=== PATIENT | male | born 1990 | race Caucasian/White ===

== ENCOUNTER 2018-10-19 13:59 | Emergency (ER) | payer MEDICAID, SELFPAY ==
[2018-10-19 14:00] VITALS: BP 138/82; PULSE 85; RESP 16; TEMP 36.6; O2SAT 98; BMI 19.9
--- NOTE | 2018-10-19 14:09 | RAD_ITS ---
STUDY: X-RAY CHEST REASON FOR EXAM: Male, 28 years old. Chest pain following accident. TECHNIQUE: PA and lateral views of the chest. COMPARISON: None. FINDINGS: The lungs are clear and expanded. There is no demonstrated pleural abnormality. Normal size heart. Normal mediastinum and sugar. Normal visualized pulmonary arteries. Normal visualized aortic arch and descending thoracic aorta. Normal visualized thoracic spine. Normal visualized ribs, clavicles, and shoulders. There is no demonstrated abnormality of the visualized soft tissue structures of the upper abdomen. RAD/Chest PA and Lateral IMPRESSION: Normal x-ray examination of the chest. Electronically Signed: Cb Watt, at 14:33 EDT , Service support ,
--- NOTE | 2018-10-19 14:14 | ED.DCSUM_ITS ---
History of Present Illness Chief Complaint: Chest Other Detail of Chief Complaint: Anterior right chest pain status post fall Informant: Patient Onset: Days - Fall occurred Wednesday while skateboarding. He had 3 separate falls onto the pavement. Context: Sudden Onset Timing: Continuous Quality: Pain Location: Midclavicular line second third intercostal space right side Current Severity: Mild Maximum Severity: Severe Worsened by: Movement of right upper extremity, torso and breathing Relieved by: Nothing Associated Symptoms: Slight shortness of breath Narrative: Patient is a 28-year-old male who was skateboarding this past weekend. He had multiple falls. He remembers 3 falls specifically where he landed hard on the ground. He reports pain right anterior chest midclavicular line second third intercostal space. He reports pain with movement of the right upper extremity, twisting and breathing. He does report slight shortness of breath. He denies history of pneumothorax. He denies history of rib fractures. He denied head trauma. He denied loss of conscious. He denies neck pain. He denies paresthesia, anesthesia motors. He denies GI symptoms. He denies back pain. Prior similar symptoms: No Recent Illness/Hospitalization: No - Past Medical History (1) No significant past medical history Status: Acute Past Medical History - Allergies and Home Meds Allergies/Adverse Reactions: Allergies No Known Allergies Allergy (Verified 10/19/18 14:00) Primary Care Physician: Sidney Feldman [Primary Care Provider] - Prior records reviewed: No Surgical History: no surgical history Lives: Spouse/ Significant Other Drugs: None Review of Systems General: Denies: Chills, Fever, Malaise, Subjective, Sweats Eyes: Denies: Visual changes - bilaterally, Blurred Vision - bilaterally ENT: Denies: Bilateral ear pain Cardiovascular: Reports: Chest pain. Denies: Palpitations, Heart racing Respiratory: Reports: Dyspnea. Denies: Cough, Sputum, Dyspnea on exertion Gastrointestinal: Denies: Abdominal pain, Nausea, Vomiting, Diarrhea Genitourinary: Denies: Hematuria Musculoskeletal: Denies: Myalgias, Arthralgias, Neck pain, Back pain, Swelling, Extremity Pain Skin: Denies: Rash, Wounds Neurological: Denies: Headache, Weakness, Parasthesia Allergy: Denies: Uticaria Physical Exam Vital Signs/Narrative: Vital Signs Temp Pulse Resp BP Pulse Ox 10/19/18 14:00 97.8 F 85 16 138/82 H 98 Inital Vital Signs reviewed: Yes General: Well nourished, Well developed, No Acute Distress Head: Normocephalic, Atraumatic Eyes: Perrl, EOMI. Negative for: Pale conjunctiva, Scleral icterus, - ENT: Moist mucous membranes, No rhinorrhea Neck: Supple, Nontender, No lymphadenopathy, No JVD, - Cardiovascular: Regular rate, Regular rhythm, No murmurs, Normal S1, Normal S2 Respiratory: No distress, CTA bilaterally, Chest tenderness - Right midclavicular line second third intercostal space with area of fullness noted. There is no crepitus subcutaneous air noted. Breath sounds slightly diminished right compared to left. There is no hyperresonance percussion.. Negative for: Chest nontender Abdomen: Soft, Nontender, Nondistended, Normal bowel sounds, No masses Extremities: Nontender, No edema Skin: Normal color, No rash Neurological: Alert, Oriented x3, Cranial nerves II-XII grossly intact, Normal Strength, Normal Sensation Psychological: Normal affect, Normal Mood Diagnostic/Tx/Re-eval Chest X-Ray - ED: 2 View, Read by ED Physician, Normal, Heart, Lungs, Mediastinum, Bony Structures, No Acute Disease, - - No evidence of pneumothorax or hemothorax. No evidence of fractured ribs. - Medical Decision Making Patient received 500 mg of Naprosyn and one [place] tablet. X-ray was obtained to evaluate for pneumothorax, hemothorax and fractured rib. ED Disposition - Plan for ED Patient: Disposition: Home or Assisted Living Diagnosis: Chest wall contusion Instructions: ED Contusion Chest Wall Prescriptions: Hydrocodone Bitart/Apap 5-325 [[place] 5MG-325MG] 1 tab PO Q6H PRN PRN 2 Days #7 tab PRN Reason: Pain Naproxen [Naprosyn] 500 mg PO BID #14 tab Referrals: Sidney Feldman [Primary Care Provider] - 3-5 Days if not improving
[2018-10-19] MEDS: Naproxen 250 MG Tablet 500 MG PO (14:22)
[2018-10-19] MEDS: HYDROcodone Bitartrate/Apap 5/325 Tablet PO (14:23)
== END 2018-10-19 14:52 | disposition home or self-care (01) ==
LOC: ED 14:51
PROVIDERS: Emergency Provider Emergency Medicine; Family Provider Family Medicine; PCP Family Medicine
DX: S20.211A Contusion of right front wall of thorax, initial encounter (principal); V00.131A Fall from skateboard, initial encounter; Y93.51 Activity, roller skating (inline) and skateboarding; Y92.9 Unspecified place or not applicable; Y99.8 Other external cause status
CPT/HCPCS: 71046; 99283

== ENCOUNTER 2019-07-11 07:59 | Emergency (ER) | payer OTHER, SELFPAY ==
[2019-07-11 08:02] VITALS: BP 154/113; PULSE 89; RESP 16; TEMP 36.3; O2SAT 99
[2019-07-11 08:18] LABS: Mucous, Urine 0 SEEN /hpf (<or=2+)
[2019-07-11 08:28] LABS: Color, Urine Yellow (Yellow); Glucose, Dipstick Normal (Normal); Ketone-Dipstick Negative (Negative); Leukocyte Esterase-Dipstick Negative /ul (Negative); Nitrite-Dipstick Negative (Negative); Occult Blood-Urine Negative /ul (Negative); Protein-Dipstick Negative (Negative); Specific Gravity, Urine 1.015 (1.002-1.030); Urine Bilirubin Dipstick Negative (Negative); Urine Clarity Cloudy (Clear); Urine Urobilinogen Normal (Normal)
[2019-07-11 08:33] LABS: Bacteria 1+ /hpf (None Seen); Red Blood Cells-Urine 0-5 SEEN /hpf (0-5); White Blood Cells 0-5 SEEN /hpf (0-5)
[2019-07-11 08:34] LABS: Amorphous Sediment 2+; Squamous Epithelial Cells - UA 0-5 SEEN /hpf (0-5)
--- NOTE | 2019-07-11 08:46 | ED.DCSUM_ITS ---
- ER Visit Summary Date of Service: 07/11/19 Chief Complaint: [Concern for STD] History of Present Illness: The patient is a 29 M [presents to the emergency department with concern for possible STD. Patient states that his girlfriend cheated on him a few weeks ago. Patient complaining of dysuria. Patient yesterday states that he felt like there was some fluid in his underwear. She got some erythema at the tip of the penis. He denies any other lesions on his penis. Patient has had history of prior STD years ago but he does not know what it they just treated him.] Denies any fevers. Physical Examination: [HEENT-PERRLA, EOMI. Cranial nerves II through XII grossly intact. TMs clear. Mucous membranes moist. No adenopathy. Cardiovascular-regular rate and rhythm without murmur or ectopy Lungs-clear to auscultation, chest wall stable without crepitus or subcu emphysema Abdomen-normoactive bowel sounds, soft, nontender, no rebound or rigidity, no peritoneal signs. exam-patient is a circumcised male. No external lesions noted. No drainage from the penis noted. Extremities-intact ?4, normal range of motion, normal pulses, atraumatic] Test Results: [Patient had a urinalysis that was unremarkable.] Gonorrhea and Chlamydia testing results pending. Emergency Department Course and Treatment: [Macular Rocephin to 50 mg IM as well as Zithromax 1 g p.o.] Treatment Plan: [Patient will be referred to primary care physician quality control representative for no doc for follow-up in 3 to 5 days.] Disposition: [Discharged home in stable condition] Impression: [Urethritis] This note was generated with [employer] dictation software. It may contain incorrect words, spelling, and punctuation that were not noted in review of the chart prior to signing ED Disposition - Plan for ED Patient: Referrals: Care Physician,No Primary [Primary Care Provider] -
--- NOTE | 2019-07-11 08:48 | ED.DEP ---
ED Disposition - Plan for ED Patient: Instructions: URETHRITIS, Male (GC vs. Chlam) Referrals: Care Physician,No Primary [Primary Care Provider] - Cheryl Gold MD [STAFF PHYSICIAN] - 3-5 Days
[2019-07-11] MEDS: Azithromycin 250 MG Tablet 1000 MG PO (09:06)
[2019-07-11] MEDS: Ceftriaxone 500 MG Vial 250 MG IM (09:20)
[2019-07-11 09:54] VITALS: BP 142/91; PULSE 83; RESP 16; O2SAT 98
--- NOTE | 2019-07-11 10:08 | ED.RN ---
DISCHARGE INSTRUCTIONS GIVEN TO AND REVIEWED WITH PATIENT, PATIENT DENIES QUESTIONS OR CONCERNS AND VOICES UNDERSTANDING OF DISCHARGE INSTRUCTIONS.
[2019-07-11 10:11] LABS: Chlamydia Trachomatis by PCR Negative (Negative); Neisserai gonorrhoeae by PCR Negative (Negative); Probe Check PASS; Sample Adequacy Control PASS; Specimen Processing Control PASS
== END 2019-07-11 10:09 | disposition home or self-care (01) ==
LOC: ED 08:30
PROVIDERS: Emergency Provider Emergency Medicine
DX: N34.2 Other urethritis (principal); Z72.0 Tobacco use
CPT/HCPCS: 81001; 87491; 87591; 96372; 99283

== ENCOUNTER → 2020-02-01 09:42 | Outpatient (CLI) | payer BC, SELFPAY ==
[2020-02-01 12:00] LABS: Absolute Lymphocyte Count 1.33 X10^3/uL (0.83-4.51); Absolute Neutrophil Count 2.9 X10^3/uL (2.0-7.7); Basophil# 0.03 X10^3/uL; Basophil% 0.6 % (0-1); Eosinophil# 0.08 X10^3/uL; Eosinophils% 1.7 % (0-5); Hematocrit 45.1 % (40-54); Hemoglobin 15.2 g/dL (13.0-16.5); Lymphocyte # 1.33 X10^3/ul (4.0); Lymphocyte % 27.8 % (19-41); Mean Corp Hgb Conc 33.7 g/dL (32-36); Mean Corpuscular Hgb 31.1 pg (27.0-32.0); Mean Corpuscular Volume 92.4 fL (80-94); Mean Platelet Vol. 10.1 fl (6.2-12.0); Monocyte% 8.4 % (0-10); NRBC Flagged by Analyzer 0 % (0-5); Neutrophil # 2.93 X10^3/uL (2.7-7.7); Neutrophil % 61.3 % (47-70); Platelet Count 293 K/mm3 (150-450); RBC Distribution Width CV 12.3 % (11.6-14.6); RBC Distribution Width SD 42.2 fl (35.1-43.9); Red Blood Count 4.88 M/mm3 (4.6-6.2); White Blood Count 4.8 K/mm3 (4.4-11.0)
[2020-02-01 12:15] LABS: Insulin 2.1 mU/L (2.6-37.6)
[2020-02-01 12:20] LABS: Hemoglobin A1c 4.5 % (3.8-5.6)
[2020-02-01 12:37] LABS: ALB/GLOB Ratio 1.6 RATIO (0.9-2.4); AST(SGOT) 16 U/L (15-37); Alanine Aminotransfer ALT/SGPT 18 U/L (16-61); Albumin, Serum 4.5 g/dL (3.2-5.0); Alkaline Phosphatase 55 U/L (45-117); Anion Gap 7 (5-15); BUN 9 mg/dL (7-18); BUN/Creat Ratio 9.8 RATIO (10-20); CRP < 2.90 mg/L (0.0-3.0); Calcium,Total 8.7 mg/dL (8.5-10.1); Chloride 105 mmol/L (98-107); Cholesterol 139 mg/dL (200); Creatinine, Serum 0.92 mg/dL (0.70-1.30); EST Glomerular Filtration Rate 103 mL/min (>60); Est Glom Filt Rate - Afr Amer 125 mL/min (>60); Globulin 2.8 g/dL (2.2-4.2); Glucose 81 mg/dL (74-106); High Density Lipoprotein 58 mg/dL; Potassium 3.6 mmol/L (3.5-5.1); Protein, Total 7.3 g/dL (6.4-8.2); Sodium Level 139 mmol/L (136-145); Thyroid Stim Hormone (TSH) 1.47 uIU/mL (0.358-3.74); Triglycerides 36 mg/dL; Very Low Density Lipoprotein 7 mg/dL (5-40)
[2020-02-02 20:07] LABS: Endomysial Antibody IgA Negative (Negative)
[2020-02-02 21:24] LABS: Immunoglobulin A 168 mg/dL (90-386); t-Transglutaminase IgA <2 U/mL (0-3)
== END ==
PROVIDERS: PCP Family Medicine; Visit Provider Family Medicine
DX: Z00.00 Encounter for general adult medical examination without abnormal findings (principal); E16.2 Hypoglycemia, unspecified; K52.9 Noninfective gastroenteritis and colitis, unspecified
CPT/HCPCS: 36415; 80053; 80061; 82533; 82784; 83036; 83516; 83525; 84443; 85025; 86140; 86255

== ENCOUNTER → 2020-02-07 10:18 | Outpatient (CLI) | payer BC, SELFPAY ==
[2020-02-07 12:51] LABS: Erythrocyte Sedimentation Rate < 1 mm/hr (0-15)
[2020-02-07 12:54] LABS: Hematocrit 45.7 % (40-54); Hemoglobin 15.4 g/dL (13.0-16.5); Mean Corp Hgb Conc 33.7 g/dL (32-36); Mean Corpuscular Hgb 31.8 pg (27.0-32.0); Mean Corpuscular Volume 94.4 fL (80-94); Mean Platelet Vol. 10.4 fl (6.2-12.0); Platelet Count 275 K/mm3 (150-450); RBC Distribution Width CV 12.3 % (11.6-14.6); RBC Distribution Width SD 42.8 fl (35.1-43.9); Red Blood Count 4.84 M/mm3 (4.6-6.2); White Blood Count 5.9 K/mm3 (4.4-11.0)
[2020-02-14 12:30] LABS: Fats, Neutral Normal (.); Fats, Total Normal (.)
== END ==
PROVIDERS: PCP Family Medicine; Referring Provider Internal Medicine Gastroenterology; Visit Provider Internal Medicine Gastroenterology
DX: R19.7 Diarrhea, unspecified (principal)
CPT/HCPCS: 36415; 82705; 85027; 85652

== ENCOUNTER → 2020-02-08 13:20 | Outpatient (CLI) | payer BC, SELFPAY ==
[2020-02-12 16:08] LABS: QNTFERON TB Mitogen Value > 10.00 IU/mL (.); QNTFERON TB Nil Value 0.02 IU/mL (.); QNTFERON TB1+ Ag Value 0.02 IU/mL (.); QNTFERON TB2+ Ag Value 0.02 IU/mL (.)
[2020-02-12 17:14] LABS: Adrenocorticotropic Hormone 60.8 pg/mL (7.2-63.3); QNTIFERON TB Positive Criteria Negative (Negative)
== END ==
LOC: LAB.FUTURE 13:21
PROVIDERS: PCP Family Medicine; Visit Provider Family Medicine
DX: Z11.1 Encounter for screening for respiratory tuberculosis (principal); E16.2 Hypoglycemia, unspecified; E27.40 Unspecified adrenocortical insufficiency
CPT/HCPCS: 36415; 82024; 86480

== ENCOUNTER 2020-03-10 09:12 | Emergency (ER) | payer BC, SELFPAY ==
[2020-03-10 09:12] VITALS: BP 159/55; PULSE 84; RESP 17; TEMP 36.7; O2SAT 100; BMI 20.9
--- NOTE | 2020-03-10 09:20 | ED.VIS.GEN ---
History of Present Illness Chief Complaint: Upper Extremity Injury Informant: Patient Narrative: Patient states that he fell landing awkwardly on the left hand last night. Is concerned he may have a fracture of his metacarpal. He is right-handed. Denies any other injuries. Past Medical History - Allergies and Home Meds Allergies/Adverse Reactions: Allergies No Known Allergies Allergy (Verified 03/10/20 09:12) Primary Care Physician: Brigid Beltran DO [STAFF PHYSICIAN] - As soon as possible Past Medical History: None Surgical History: no surgical history Lives: With Family Smoking Status: Current every day smoker Drugs: None Review of Systems General: Denies: Chills, Fever, Sweats Eyes: Denies: Visual changes - bilaterally, Diplopia ENT: Denies: Rhinorrhea, Sore throat Cardiovascular: Denies: Chest pain, Palpitations Respiratory: Denies: Dyspnea, Cough, Dyspnea on exertion Gastrointestinal: Denies: Abdominal pain, Nausea, Vomiting, Diarrhea, Melena, Hematochezia Genitourinary: Denies: Dysuria, Hematuria, Frequency Musculoskeletal: Reports: Extremity Pain. Denies: Back pain Skin: Denies: Rash, Wounds Neurological: Denies: Headache, Weakness, Numbness Physical Exam Vital Signs/Narrative: Vital Signs Temp Pulse Resp BP Pulse Ox 03/10/20 09:12 98.0 F 84 17 159/55 H 100 Inital Vital Signs reviewed: Yes General: Well nourished, Well developed, No Acute Distress Head: Normocephalic, Atraumatic Eyes: Perrl, EOMI ENT: Moist mucous membranes, No rhinorrhea Neck: Supple, Nontender Cardiovascular: Regular rate, Regular rhythm, No murmurs Respiratory: No distress, CTA bilaterally, Chest nontender Abdomen: Soft, Nontender, Nondistended, Normal bowel sounds Back: Nontender, Normal Inspection Extremities: No edema, - - Out swelling over the dorsum of the right hand. Tenderness along the fourth metacarpal midshaft. Loss of the MCP normal contours. There is a very slight rotation of the ring finger when flexed at 90. NVI Skin: Normal color, No rash Neurological: Alert, Oriented x3, Cranial nerves II-XII grossly intact, Normal Strength, Normal Sensation Psychological: Normal affect, Normal Mood Diagnostic/Tx/Re-eval Clinical Impression(s) from Imaging Studies Hand X-Ray 03/10/20 09:30 IMPRESSION: There is an oblique fracture of the mid diaphysis of the fourth metacarpal with palmar angulation of the distal phalanx with respect to the proximal phalanx by approximately 25 degrees Electronically Signed: Jordyn Graham MD at 9:53 EDT , Service support , - Medical Decision Making Patient was placed in a ulnar gutter prefabricated Ortho-Glass splint. Neurovascular intact pre and post application. He will follow-up with orthopedics. ED Disposition - Plan for ED Patient: Disposition: Home or Assisted Living Diagnosis: Fracture of metacarpal of left hand, closed Instructions: ED Fx Hand Closed Prescriptions: Hydrocodone Bitart/Apap 5-325 [[place] 5MG-325MG] 1 tab PO Q6H PRN PRN 3 Days #12 tab PRN Reason: Pain Prescription Printed Referrals: Brigid Beltran DO [STAFF PHYSICIAN] - As soon as possible
--- NOTE | 2020-03-10 09:30 | RAD_ITS ---
STUDY: X-RAY - LEFT HAND REASON FOR EXAM: Male, 29 years old. Fall last night, increasing pain and swelling. TECHNIQUE: 4 view(s) of the hand. COMPARISON: None. FINDINGS: Normal radiocarpal articulation. Normal distal radioulnar joint. Normal visualized carpal bones. Normal carpal articulations Normal carpometacarpal articulation of the thumb. Normal second through fifth carpometacarpal joints. There is an oblique fracture of the mid diaphysis of the fourth metacarpal with palmar angulation of the distal phalanx with respect to the proximal phalanx by approximately 25 degrees. Normal metacarpophalangeal joint of the thumb. Normal interphalangeal joint of the thumb. Normal proximal and distal phalanges of the thumb. Normal metacarpophalangeal joints of the second through fifth fingers. Normal proximal and distal interphalangeal joints of the second through fifth fingers. Normal phalanges of the second through fifth fingers. The soft tissue structures are unremarkable. RAD/Hand Min 3 Views IMPRESSION: There is an oblique fracture of the mid diaphysis of the fourth metacarpal with palmar angulation of the distal phalanx with respect to the proximal phalanx by approximately 25 degrees Electronically Signed: Jordyn Graham MD at 9:53 EDT , Service support ,
[2020-03-10 10:04] VITALS: BP 118/73; PULSE 56; RESP 15; O2SAT 98
== END 2020-03-10 10:04 | disposition home or self-care (01) ==
PROVIDERS: Emergency Provider Emergency Medicine; PCP Family Medicine
DX: S62.309A Unspecified fracture of unspecified metacarpal bone, initial encounter for closed fracture (principal); F17.200 Nicotine dependence, unspecified, uncomplicated; W19.XXXA Unspecified fall, initial encounter
CPT/HCPCS: 73130; 99281

== ENCOUNTER 2020-03-15 07:24 | Day surgery (SDC) | payer BC, SELFPAY ==
[2020-03-12 10:26] VITALS: BMI 20.9
--- NOTE | 2020-03-14 14:38 | PCM.HP.BLA ---
History and Physical I have re-examined the patient. There are no clinical changes since date of exam. Intake Vital Signs 03/12/20 Height 5 ft 11 in 03/12/20 Weight: 150 lb Intake Visit Reasons: Left Hand Accompanied by: Self Is patient in pain?: Yes Pain scale (1-10): 5 Allergies No Known Allergies Allergy (Verified 03/12/20 10:25) Medications Hydrocodone Bitart/Apap 5-325 [[place] 5MG-325MG] 1 tab PO Q6H PRN PRN 3 Days #12 tab 03/10/20 [Rx Confirmed 03/12/20] esomeprazole magnesium 40 mg capsule,delayed release ea PO 03/12/20 [History Confirmed 03/12/20] glucose 4 gram chewable tablet ea PO 03/12/20 [History Confirmed 03/12/20] [facility] Medical History (Updated 03/12/20 @ 10:30 by Jessie Meng) 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 Brigid Beltran DO) Smoking Status: Current every day smoker HPI Left Hand: Details: Parts of this documentation were recorded by a scribe, this documentation accurately reflects the service provided and the decisions made by me, Dr. Brigid Beltran DO 03/12/20 [id number] ALCANTAR is a 29 year old M here today for to establish as a new patient. On 03/09/2020, Patient states he tripped over his shoe, and his hand possibly bent backwards, patient heard a loud pop, slept it off. Patient went to [facility] ER on 03/10/2020, x-rays were obtained and was read: There is an oblique fracture of the mid diaphysis of the fourth metacarpal with palmar angulation of the distal phalanx with respect to the proximal phalanx by approximately 25 degrees. Patient reports a throbbing pain. Pain is rated 5/10 from the pain scale today. Patient denies previous injury to left hand. Denies previous surgeries and injections with left hand. Pain is controlled with his hydrocodone-acetaminophen prescribed by the [facility] ER. ROS Const Reports system reviewed and no additional complaints, except as docu, Denies chills, Denies fatigue, Denies fever(s) Card Reports system reviewed and no additional complaints, except as docu, Denies chest pain, Denies shortness of breath Resp Reports system reviewed and no additional complaints, except as docu, Denies chest congestion, Denies cough, Denies shortness of breath GI Reports system reviewed and no additional complaints, except as docu, Denies abdominal pain, Denies constipation, Denies incontinent of stools, Denies loose stools Reports system reviewed and no additional complaints, except as docu, Denies urinary incontinence Musc Reports system reviewed and no additional complaints, except as docu, Reports joint pain, Reports joint swelling, Reports numbness, Reports stiffness, Reports tingling Skin/Breast Reports system reviewed and no additional complaints, except as docu, Denies dry skin, Denies redness, Denies lesions, Denies new lesions, Denies non-healing lesions, Denies itching, Denies rash, Denies skin ulcer, Denies sores, Denies wounds Neuro Yes system reviewed and no additional complaints, except as docu, Yes numbness, Yes tingling Endo Denies fatigue Ortho Exam General General: Yes no acute distress Neurologic: Yes alert, Yes oriented x3 Psychologic: Yes reasonable and appropriate Right Wrist/Hand Skin/Wound: Yes Swelling, Yes Ecchymosis Left Wrist/Hand Date of injury: 03/09/20 Skin/Wound: Yes Swelling, Yes Ecchymosis, Yes capillary refill normal, No erythema Left Wrist: Yes TTP Fracture site Motor: EPL: 5, FDP-2: 5, 1st Dorsal Interosseous: 5, APB: 5 Sensation: Radial: I, Ulnar: I, Median: I WRIST: pain and shortening of left fourth metacarpal Assessment & Plan Problems 1. Closed displaced fracture of base of fourth metacarpal bone of left hand, initial encounter S62.177A Plan Personally reviewed patients x-rays of the left hand. Patient educated that he has a oblique fracture of the mid diaphysis of the fourth metacarpal with palmar angulation of the distal phalanx. Patient educated that we can either try to reduce the fracture site today or he can have surgery to have a plate placed. Patient wishes to proceed with surgery. Reviewed the pre-operative plans with the patient. Risks and benefits of the procedure were fully explained, including but not limited to infection, neurovascular injury, continued pain, arthritis, stiffness, need for further surgery, re-injury, DVT, PE, general risks of anesthesia, and loss of limb or life. Biggest risk is pain from the hardware but the hardware can be removed after 9 months. The patient understands all the risks and does wish to proceed with written consent for left fourth metacarpal ORIF, repair as indicated. We discussed the current risk associated COVID-19. While it is understood that there is a community spread of COVID 19 the risk of carmella COVID-19 while at [facility] is very low, however, the risk cannot be completely mitigated because of the community spread of the disease. We discussed in detail the risk of exposure to and or potential harm posed by the COVID-19 virus with having a surgery/procedure at this time versus the risk of delaying the surgery/procedure. Is not possible to know either the risk of delaying the surgery procedure or chance of getting an infection with perfect accuracy, but a joint decision was made to proceed at this time with a schedule surgery/procedure as indicated on the consent form. Patient was notified that we will need to comply with any screening or testing [facility] wishes to perform or that surgery may be delayed for any positive results. Follow up post op or sooner if pain, swelling, numbness or associated symptoms, or concerns develop. All questions answered. Patient in agreement of plan. Coding Level of Care Code Off vis,new,level 3 Diagnoses Closed displaced fracture of base of fourth metacarpal bone of left hand, initial encounter S62.315A ??Encounter type: initial encounter ??Fracture alignment: displaced ??Metacarpal bone: fourth
[2020-03-15] VITALS (9 sets, daily range): BP systolic 131–154; BP diastolic 77–108; PULSE 53–65; RESP 16; TEMP 36.6–37; O2SAT 95–100; BMI 21.2
[2020-03-15] MEDS: Lactated Ringers 1,000 ML 100 ML IV ×2 (08:00→09:00)
[2020-03-15 08:16] LABS: Bedside Glucose 80 mg/dL (70-110)
--- NOTE | 2020-03-15 08:56 | PCM.DC.ORTHO ---
Discharge Diet: No Restrictions - keep splint clean and dry, call with concerns, follow up in 2 weeks Discharge Activity: May Not Drive May shower in (days): 1 Ice area for (Minutes): 20 - Every hour while awake. Weight Bearing Status: Weight bearing as tolerated Keep extremity elevated above heart level: Operative Extremity Call your doctor if your incision/area has: Continuous Slow Oozing, Sudden Increased Bleeding, Increased Pain/ Swelling, Increased Redness, Foul Smelling Discharge Call your doctor if you observe: Fever of 101 or Higher, Coldness, Increased Pain, Numbness or Tingling, Change in Color, Calf discomfort Allergies/Adverse Reactions: Allergies No Known Allergies Allergy (Verified 03/15/20 07:29) Medications to take at Discharge esomeprazole magnesium 40 mg capsule,delayed release 40 mg PO DAILY 03/12/20 glucose 4 gram chewable tablet 4 % PO DAILY PRN PRN 03/12/20 Hydrocodone Bitart/Apap 5-325 [[place] 5MG-325MG] 1 - 2 tablet PO Q6H PRN PRN 5 Days #40 tablet 03/15/20 The following prescriptions were given: Hydrocodone Bitart/Apap 5-325 [[place] 5MG-325MG] 1 - 2 tablet PO Q6H PRN PRN 5 Days #40 tablet PRN Reason: Pain Transmission Status: Sent to [facility] Primary Care Physician: Sidney Feldman [Primary Care Provider] - Test Results: Test results from this visit will be discussed in further detail at your follow-up appointment, if applicable. Please Follow Up With: Brigid Beltran, DO - [phone]
--- NOTE | 2020-03-15 08:57 | PCM.OPRPT ---
Report of Operation Date of Procedure: 03/15/20 Pre-Operative Diagnosis: left displaced fourth metacarpal fracture Post-Operative Diagnosis: same Surgery/Procedure Performed:: orif left fourth metacarpal fracture informatics scientist: Jamie Camarillo Type of Anesthesia:: General Anesthesiologist: Luis Dong Estimated Blood Loss (mL): min Fluids Replaced: 800cc Description of Procedure: Preop note Patient a 29-year-old male who sustained an injury to his left hand immediate pain deformity of his fourth finger. Patient presented emergency room with a displaced fourth metacarpal fracture seen in our clinic discussed risks and benefits of conservative versus operative treatment patient elected for operative treatment of his left fourth finger. It was quite short and he had a bit bit of extensor lag already. His extensor tendon houses were intact. Risk benefits alternatives were discussed with patient. Risk include but not limited to blood loss, blood clot, infection, neurovascular, failure procedure, loss of life and loss of limb. Patient is very like proceed with left ORIF of fourth metacarpal. Operative note Patient seen and examined preop holding her. Left hand was marked. Patient brought to the operating placed supine the operating table. Signed, anesthesia, antibiotics were administered left arm was prepped and draped usual sterile technique with external garments upper thigh arm. All bony prominences well-padded SCDs placed on his bilateral lower extremity. We then marked out our dorsal incision between the fourth and fifth ray interspace then elevated the arm segment anterior entry was raised her pressure 250 torr. Timeout was performed. We then used a 15 blade to cut through skin dissected down to the level of the periosteum of the fourth metacarpal which was released we were able to visualize our fracture site which was debrided with combination of a dental pick and irrigation. We then reduced the fracture using a lobster claw and longitudinal traction. We placed the lag screw from across the fracture site. This held the fracture site we then placed the plate a 6-hole Synthes 2.o plate and fixated it both proximally distally and in order to maintain his length and rotation. Patient had cascade intact intact at the end of the case. We then oversewed the periosteum to itself with 3 of 3-0 Vicryl to cover the plate. We protected all neurovascular structures at all times and used fluoro to confirm placement of hardware and reduction of fracture. the extensor tendons were visualized and noted to be intact. The skin was closed subcuticular 3-0 Vicryl in a running 4 Monocryl ulnar gutter was placed to his left upper extremity. Trach was deflated. Patient taught procedure well no complication shows recovery room in stable condition. Postoperative note Nonweightbearing left arm follow-up in 2 weeks Keep cast clean and dry Call with increased pain numbness tingling or further issues arise Dragon disclaimer Pharmacy has prescriptions This note was generated with [employer] dictation software. It may contain incorrect words, spelling, and punctuation that were not noted in checking the note before signing.
--- NOTE | 2020-03-15 09:00 | RAD_ITS ---
STUDY: X-RAY - LEFT HAND REASON FOR EXAM: ORIF fourth metacarpal fracture. TECHNIQUE: 2 intraoperative images of the hand. COMPARISON: Radiographs 03/10/2020. FINDINGS: There is an orthopedic plate and screws transfixing a fourth metacarpal diaphyseal fracture in anatomical alignment and position. Electronically Signed: Volodymyr Andrews MD at 14:19 EDT Tel , Service support , RAD/Hand 2 Views
[2020-03-15] MEDS: Cefazolin 2 GM in 0.9% Normal Saline 100 ML IV (09:08)
[2020-03-15] MEDS: Bupivacaine Mpf 0.5% 30 ML VIAL (10:22)
[2020-03-15] MEDS: Mupirocin Ointment 22gm Tube 1 APPLIC (10:24)
== END 2020-03-15 12:35 | disposition home or self-care (01) ==
LOC: SDC 07:25 → AC 07:26
PROVIDERS: PCP Family Medicine; Referring Provider Orthopaedic Surgery; Visit Provider Orthopaedic Surgery
PROC: (CPT 26615; principal; 2020-03-15 08:45)
DX: S62.315A Displaced fracture of base of fourth metacarpal bone, left hand, initial encounter for closed fracture (principal); W22.8XXA Striking against or struck by other objects, initial encounter; Y93.9 Activity, unspecified; Y92.9 Unspecified place or not applicable; Y99.9 Unspecified external cause status; F17.200 Nicotine dependence, unspecified, uncomplicated; Z20.828 Contact with and (suspected) exposure to other viral communicable diseases; K21.9 Gastro-esophageal reflux disease without esophagitis; Z79.899 Other long term (current) drug therapy; K58.9 Irritable bowel syndrome, unspecified
CPT/HCPCS: 01830; 26615; 73120; 73130; 76000; 82962; 87426; C1713; C9803; J7120; J2405

== ENCOUNTER 2020-05-14 13:30 | Outpatient (RCR) | payer BC, SELFPAY ==
[2020-03-28 10:27] VITALS: BMI 20.9
--- NOTE | 2020-04-16 11:26 | HP.OTEVAL_ITS ---
Patient's Visit Information TY LIYAH ALCANTAR is a 29 year old M, referred to Occupational Therapy by Dr. Brigid Beltran DO, with a diagnosis of 4th metacarpal fx. Date of Evaluation: 04/16/20 Occupational Therapist: Nissa Murray, RAF/Claudy, CHT - Subjective This 29 year old male was seen for OT eval with dx of left 4th Metacarpal fx ORIF. Pt states on he had a fall and suffered a left hand injury- pt went to ER next day for x-ray. pt underwent 4th ORIF on 2019. pt was casted . pt states hand is feeling stiff with movement- discomfort. pt works at [employer] and has been off due to injury but would like to return when able- pt needs to lift 50# and wear gloves. - Pain left hand 2 Pain Intensity Range: 1, 4 - ROM MP: left RF 60 left LF 85 right RF 85 right LF 85 PIP: left RF -6/100 left LF 0/110 right RF 0/100 right LF 0/100 DIP: left RF 0/75 left LF 0/80 right RF 0/75 right LF 0/85 ROM Comments: pt demo with sight PIP extensor lag at this time-. full composite fist of left hand a limited RF MVP flex - Strength Documentation Improvement Specialist: left 25# right 110# Lateral Pinch: left 14# right 16# Tripod Pinch: left 14# right 16# Tip-to-Tip Pinch: left 9# right 8# Strength Comments: pt demo with a decrease in left bad work gatherer strength from injury. will initiate strengthening when Dr. - Quick DASH-Disab of Arm,Shoulder& Hand Quick DASH Score: 55.0000 - Goals Goal:: pt will demo a left bad work gatherer strength of 55# or greater to return to work and ADLS at [facility] by d/c Goal:: pt will demo the ability to form a composite fist to increase pts ind with grasp of small object to increase pts ind. with ADLS and IADLS by d/c Goal:: pt will report no pain greater than 1/10 with use of left hand with ADLs and IADls by d/c Goal:: pt will demo understanding of scar mtg by end of 2nd session to decrease scar adhesions. - Rehabilitation General Assessment: Pt demo a decrease in pts functional ROM and strength limiting his ind. with ADls and IADLs at this time. Pt would benefit from skilled OT services 2-3x week to return pt to PLOF with ADls and job tasks. Today therapist ed. pt on ROM for MCP, PIP and DIP flex and ext. therapist also ed. pt on scar mtg. At end of session pt demo full functional fist and a left MCP flex of 80*. pt would benefit from PRE will clear by prior to initiating strengthening. Rehabilitation Potential: Good - Anticipated Interventions A/AAROM/PROM, Strengthening, Scar Care, Desensitization, Modalities, Joint Protection/Energy Conservation, Ergonomic Education - Visit Plan Frequency: 2-3x /Week Duration: 4 Weeks TEXT: Thank you for the opportunity to evaluate your patient. For Medicare and Medicare HMO plans, please review the plan of care and approve it. It will need to be FAXED BACK to us at [phone] for Medicare purposes. Please let me know if there are questions or concerns regarding this plan of care. Physician Signature: Date:
--- NOTE | 2020-05-14 13:50 | HP.OTDCSUM ---
It has been my pleasure to treat DEEPTHI ALCANTAR under orders from Dr. Brigid Beltran DO, for the diagnosis of 4th metacarpal fx for a total of 8 visit(s). Please see the following information for a summary of their discharge status. % Improvement: 95 Objective/Function: d/c OT POC, pt doing very well. 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 with ADLS and IADLS by d/c Goal:: pt will report no pain greater than 1/10 with use of left hand with ADLs and IADls by d/c Goal:: pt will demo understanding of scar mtg by end of 2nd session to decrease scar adhesions. Plan: d/c OT POC Discharge Comments: Completed d/c with pt this date. Pt demo good understanding of scar mngmt techniques, ROM and strengthening activities. Pt demo 100# material requisitioner strength L hand and able to make composite fist w/o any s/s of pain. Pt states 0/10 pain. Pt states he is independent with all BADL/IADL tasks. Pt no longer requires skilled OT services. D/C OT POC. If there are questions or concerns regarding this patient's occupational therapy, please fell free to call me at [phone]. Thank you for the referral of this patient. Sincerely, Raina Noble
== END 2020-05-14 19:00 | disposition home or self-care (01) ==
LOC: OT 13:30
PROVIDERS: PCP Family Medicine; Referring Provider Orthopaedic Surgery; Visit Provider Orthopaedic Surgery
DX: Z98.890 Other specified postprocedural states (principal)
CPT/HCPCS: 97110; 97140; 97166; 97530

== ENCOUNTER → 2020-07-05 12:33 | Outpatient (CLI) | payer BC, SELFPAY | PROVIDERS: PCP Family Medicine; Referring Provider Physician Assistant Surgical; Visit Provider Physician Assistant Surgical | DX: Z20.828 Contact with and (suspected) exposure to other viral communicable diseases (principal) | CPT/HCPCS: 87635; U0005; U0003 ==

== ENCOUNTER → 2020-07-10 10:16 | Outpatient (CLI) | payer BC, SELFPAY ==
[2020-07-10 08:49] VITALS: BMI 21.4
== END ==
PROVIDERS: PCP Family Medicine; Referring Provider Physician Assistant; Visit Provider Physician Assistant
DX: Z11.59 Encounter for screening for other viral diseases (principal)
CPT/HCPCS: 87635; U0005; U0003

== ENCOUNTER → 2020-09-16 15:11 | Outpatient (CLI) | payer BC, SELFPAY ==
[2020-09-16 13:16] VITALS: BMI 20.9
== END ==
PROVIDERS: PCP Family Medicine; Referring Provider Physician Assistant Surgical; Visit Provider Physician Assistant Surgical
DX: Z20.828 Contact with and (suspected) exposure to other viral communicable diseases (principal)
CPT/HCPCS: 87635; U0002

== ENCOUNTER 2021-10-01 09:20 | Emergency (ER) | payer OTHER, SELFPAY ==
[2021-10-01] VITALS (9 sets, daily range): BP systolic 132–141; BP diastolic 74–96; PULSE 79–98; RESP 14–18; TEMP 36.8; O2SAT 95–98; BMI 20.2
--- NOTE | 2021-10-01 10:54 | EX.ED.VIS.PS ---
HPI HPI - Psych History of Present Illness Chief Complaint: Suicidal Narrative Narrative: 31-year-old male with history of PTSD, depression, anxiety since 2011 when he lost his friend in [place] during overseas tour. Patient states [facility] which was changed repeatedly. He states that it did not have any effect. He states he has been struggling with mental health/disease and has not had any health care in the last 3 years. Last night he states he was sitting in the closet with his rifle contemplating killing himself. He states that it took all of his strength not to. He told his fianc?e about this this morning and she took his magazines. It was reported to him that she needed to take the weapons out of the household to which was done. Patient states he needs help and still has suicidal ideation. He denies homicidal ideation. 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 Normal colonoscopy Home Medications esomeprazole magnesium 40 mg capsule,delayed release 40 mg PO DAILY 03/12/20 [History Last Taken Unknown] glucose 4 gram chewable tablet 4 % PO DAILY PRN PRN 03/12/20 [History Last Taken Unknown] Allergy/AdvReac Type Severity Reaction Status Date / Time No Known Allergies Allergy Verified 10/01/21 09:23 Family History Grandmother Diabetes Social History household members: spouse and family housing: house current occupational status: employed Smoking Status: Current every day smoker tobacco type: cigarettes alcohol intake: current alcohol intake frequency: holidays/special occasions only what type of physical activity do you participate in: none do you feel safe at home: Yes ROS ROS ED Constitutional Constitutional ED: Reports fever(s) Eyes Eyes: Denies blurry vision or change in vision ENT ENT ED: Denies ear pain or sore throat Cardiovascular Cardiovascular: Denies chest pain, palpitations or racing heartbeat Respiratory/Chest Respiratory/Chest: Denies cough, dyspnea or sputum Gastrointestinal Gastrointestinal: Denies abdominal pain, constipation, diarrhea, nausea or vomiting Genitourinary Genitourinary ED: Denies dysuria, hematuria or urinary frequency Musculoskeletal Musculoskeletal: Denies arthralgias, myalgias or neck pain Integumentary Denies abscess, Abrasions or rash Neurologic Neurologic: Denies headache(s), paresthesias or weakness Psychiatric Psychiatric: Reports anxiety, depression, suicidal ideation and suicidal thoughts Endocrine Endocrinology: Denies polydipsia or polyuria EXAM Physical Exam Const Vital Signs: 10/01/21 09:23 10/01/21 12:22 10/01/21 13:30 Temperature 98.2 F Temperature Source Temporal Pulse Rate 98 Respiratory Rate 14 16 16 Blood Pressure 132/96 H Blood Pressure Mean 108 Pulse Ox 97 Oxygen Delivery Method Room Air Room Air Room Air 10/01/21 14:15 Temperature Temperature Source Pulse Rate 94 Respiratory Rate 18 Blood Pressure Blood Pressure Mean Pulse Ox 95 Oxygen Delivery Method Room Air General Appearance ED: Negative for pallor HEENT Reports normocephalic, head/scalp atraumatic and moist mucous membranes normocephalic Eyes PERRL and EOMs intact bilaterally Neck no lymphadenopathy and supple Chest Wall inspection of chest normal and palpation of chest normal Resp normal respiratory effort and clear to auscultation bilaterally Auscultation: Negative for rales, rhonchi or wheezes Cardio regular rate and regular rhythm GI normal to inspection, nondistended, normoactive bowel sounds and non-distended Auscultation: normoactive bowel sounds Palpation: soft Narrative: Deferred Back/Spine no CVA tenderness General Back: Negative for CVA tenderness Cervical Spine: Negative for cervical spine tenderness Extremity normal to inspection General Extremety ED: Yes edema and tenderness General Extremity: edema Neuro oriented x3 and CN's II-XII intact bilaterally Sensorium / Orientation: alert Motor Exam: strength 5/5 throughout Psych mental status grossly normal Appearance: grossly normal Attitude: No agitated Activity / Motor Behavior: fidgetting Mood & Affect: sad and tearful Thought Content: suicidality, No homicidality and No hallucination(s) Attention / Concentration: attention grossly intact Memory / Cognition: memory grossly intact Insight: poor Judgement: poor Skin no rashes or lesions noted and no wounds General Skin Exam: Negative for jaundice or pallor MDM MDM MDM Narrative Medical decision making narrative: Obtain lab work for medical clearance and the patient CBC is essentially unremarkable. CMP is within normal limits with exception of a bilirubin of 1.4. EtOH negative. Drug abuse screen is positive for amphetamines, MDMA, cocaine, cannabinoids. Rapid COVID-negative. Patient medically clear for crisis evaluation at this time. Patient is currently awaiting crisis evaluation. I believe he will need to be admitted. Patient will be signed out to incoming ED physician for monitoring until placement can be arranged. Impression: 1. Suicidal ideation 2. Amphetamine abuse 3. MDMA abuse 4. Marijuana abuse Lab Data Attestation: I reviewed the patient's lab results. Labs: Laboratory Results - last 24 hr 10/01/21 10/01/21 10/01/21 10:48 10:48 10:48 WBC 12.0 H RBC 5.28 Hgb 16.8 H Hct 49.6 MCV 93.9 MCH 31.8 MCHC 33.9 RDW Std Deviation 43.0 RDW Coeff of Aolnso 12.4 Plt Count 345 MPV 9.8 Immature Gran % (Auto) 0.400 Neut % (Auto) 82.2 H Lymph % (Auto) 12.0 L [place] % (Auto) 4.5 Eos % (Auto) 0.6 Baso % (Auto) 0.3 Absolute Neuts (auto) 9.8 H Absolute Lymphs (auto) 1.43 Nucleated RBC % 0 Sodium Potassium Chloride Carbon Dioxide Anion Gap BUN Creatinine Estim Creat Clear Calc Est GFR (MDRD) Af Amer Est GFR (MDRD) Non-Af BUN/Creatinine Ratio Glucose Calcium Total Bilirubin AST ALT Alkaline Phosphatase Total Protein Albumin Globulin Albumin/Globulin Ratio Urine Opiates Screen NEGATIVE Urine Methadone Screen NEGATIVE Ur Barbiturates Screen NEGATIVE Ur Phencyclidine Scrn NEGATIVE Ur Amphetamines Screen POSITIVE H MDMA (Ecstasy) Screen POSITIVE H U Benzodiazepines Scrn NEGATIVE Urine Cocaine Screen POSITIVE H U Cannabinoids Screen POSITIVE H Ur Drug Screen Comment Ethyl Alcohol < 3.0 10/01/21 10:48 WBC RBC Hgb Hct MCV MCH MCHC RDW Std Deviation RDW Coeff of Alonso Plt Count MPV Immature Gran % (Auto) Neut % (Auto) Lymph % (Auto) [place] % (Auto) Eos % (Auto) Baso % (Auto) Absolute Neuts (auto) Absolute Lymphs (auto) Nucleated RBC % Sodium 139 Potassium 3.8 Chloride 102 Carbon Dioxide 30.0 Anion Gap 7 BUN 11 Creatinine 0.94 Estim Creat Clear Calc 106.13 Est GFR (MDRD) Af Amer 120 Est GFR (MDRD) Non-Af 99 BUN/Creatinine Ratio 11.7 Glucose 98 Calcium 9.4 Total Bilirubin 1.40 H AST 24 ALT 25 Alkaline Phosphatase 65 Total Protein 7.8 Albumin 4.8 Globulin 3.0 Albumin/Globulin Ratio 1.6 Urine Opiates Screen Urine Methadone Screen Ur Barbiturates Screen Ur Phencyclidine Scrn Ur Amphetamines Screen MDMA (Ecstasy) Screen U Benzodiazepines Scrn Urine Cocaine Screen U Cannabinoids Screen Ur Drug Screen Comment Ethyl Alcohol Discharge Plan Triage Chief Complaint: Suicidal ED Provider: Leandro Silver Dx/Rx/DC Orders Prescriptions: No Action glucose 4 gram tablet,chewable 4 % PO DAILY PRN PRN (Reason: low glucose) RF: 0 esomeprazole magnesium 40 mg capsule,delayed release(DR/EC) 40 mg PO DAILY RF: 0 Primary Care Provider: Sidney Feldman
[2021-10-01 10:59] LABS: Absolute Lymphocyte Count 1.43 X10^3/uL (0.83-4.51); Absolute Neutrophil Count 9.8 X10^3/uL (2.0-7.7); Basophil# 0.03 X10^3/uL; Basophil% 0.3 % (0-1); Eosinophil# 0.07 X10^3/uL; Eosinophils% 0.6 % (0-5); Hematocrit 49.6 % (40-54); Hemoglobin 16.8 g/dL (13.0-16.5); Lymphocyte # 1.43 X10^3/ul (0.83-4.51); Mean Corp Hgb Conc 33.9 g/dL (32-36); Mean Corpuscular Hgb 31.8 pg (27.0-32.0); Mean Corpuscular Volume 93.9 fL (80-94); Mean Platelet Vol. 9.8 fl (6.2-12.0); Monocyte# 0.54 X10^3/uL; Monocyte% 4.5 % (0-10); NRBC Flagged by Analyzer 0 % (0-5); Neutrophil # 9.83 X10^3/uL (2.7-7.7); Neutrophil % 82.2 % (47-70); Platelet Count 345 K/mm3 (150-450); RBC Distribution Width CV 12.4 % (11.6-14.6); Red Blood Count 5.28 M/mm3 (4.6-6.2)
[2021-10-01 11:09] LABS: Amphetamine Urine VISTA POSITIVE (<1000 ng/mL); Barbiturate Urine VISTA NEGATIVE (< 200 ng/mL); Benzodiazepine Urine VISTA NEGATIVE (< 200 ng/mL); Cocaine Urine VISTA POSITIVE (< 300 ng/mL); Ecstacy Urine VISTA POSITIVE (< 500 ng/mL); Methadone Urine VISTA NEGATIVE (< 300 ng/mL); PCP Urine VISTA NEGATIVE (< 25 ng/mL); THC Urine VISTA POSITIVE (< 50 ng/mL); Vista UDS pH Range 5
[2021-10-01 11:13] LABS: ALB/GLOB Ratio 1.6 RATIO (0.9-2.4); AST(SGOT) 24 U/L (15-37); Alanine Aminotransfer ALT/SGPT 25 U/L (16-61); Albumin, Serum 4.8 g/dL (3.2-5.0); Alkaline Phosphatase 65 U/L (45-117); Anion Gap 7 (5-15); BUN 11 mg/dL (7-18); BUN/Creat Ratio 11.7 RATIO (10-20); Calcium,Total 9.4 mg/dL (8.5-10.1); Chloride 102 mmol/L (98-107); Creatinine, Serum 0.94 mg/dL (0.70-1.30); EST Glomerular Filtration Rate 99 mL/min (>60); Est Glom Filt Rate - Afr Amer 120 mL/min (>60); Estimated Creatinine Clearance 106.13 ml/min; Glucose 98 mg/dL (74-106); Potassium 3.8 mmol/L (3.5-5.1); Protein, Total 7.8 g/dL (6.4-8.2); Sodium Level 139 mmol/L (136-145)
[2021-10-01 11:20] LABS: Alcohol, Blood (Medical)-Serum < 3.0 mg/dL
--- NOTE | 2021-10-01 12:57 | ED.RN ---
spoke with lizett from [facility] about this pt, lizett said they are aware that the pt is here and kendell is currently busy so they would worry this pt later. i asked if they wanted any paper work faxed over and lizett said no they would worry about it all later.
== END 2021-10-01 19:24 ==
PROVIDERS: Emergency Provider Student in an Organized Health Care Education/Training Program; PCP Family Medicine; Visit Provider Student in an Organized Health Care Education/Training Program
DX: R45.851 Suicidal ideations (principal); F15.10 Other stimulant abuse, uncomplicated; F12.10 Cannabis abuse, uncomplicated; F41.9 Anxiety disorder, unspecified; F32.A Depression, unspecified; F17.210 Nicotine dependence, cigarettes, uncomplicated; F43.10 Post-traumatic stress disorder, unspecified; Z79.899 Other long term (current) drug therapy
CPT/HCPCS: 80053; 80307; 82077; 85025; 87811; 99285

== ENCOUNTER 2022-01-21 03:35 | Emergency (ER) | payer OTHER, SELFPAY ==
[2022-01-21 03:36] VITALS: BP 140/87; PULSE 84; RESP 15; TEMP 36.6; O2SAT 98; BMI 21.7
--- NOTE | 2022-01-21 04:00 | EDS_ITS ---
HPI History of Present Illness Chief Complaint: Lower Extremity Injury Informant: patient Narrative Narrative: Presents for evaluation puncture wound from nail left foot over a week ago at his new house. Tetanus was 2010. Pain is not as significant as initially. No drainage. No fevers. States 2 days ago noted cough dyspnea chest tightness with myalgias. Currently resolving. Tonight noticed some tightness that resolved. Tobacco history. Denies sick contacts. 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 Normal colonoscopy Home Medications esomeprazole magnesium 40 mg capsule,delayed release 40 mg PO DAILY GERD 03/12/20 [History Last Taken Unknown] glucose 4 gram chewable tablet 4 % PO DAILY PRN PRN low glucose 03/12/20 [History Last Taken Unknown] Allergy/AdvReac Type Severity Reaction Status Date / Time No Known Allergies Allergy Verified 01/21/22 03:39 Family History Grandmother Diabetes Social History household members: spouse and family housing: house current occupational status: employed Smoking Status: Current every day smoker tobacco type: cigarettes alcohol intake: current alcohol intake frequency: holidays/special occasions only what type of physical activity do you participate in: none do you feel safe at home: Yes ROS ROS ED Constitutional Constitutional ED: Denies chills, fever(s) or sweats Eyes Eyes: Denies change in vision ENT ENT ED: Denies dysphagia or sore throat Cardiovascular Cardiovascular: Denies chest pain, leg edema, palpitations or racing heartbeat Respiratory/Chest Respiratory/Chest: Reports other Details: Chest tightness resolved. ; Denies cough, dyspnea or dyspnea on exertion Gastrointestinal Gastrointestinal: Denies abdominal pain, diarrhea, nausea or vomiting Genitourinary Genitourinary ED: Denies dysuria, hematuria or urinary frequency Musculoskeletal Musculoskeletal: Denies back pain, extremity pain or neck pain Integumentary Reports wounds; Denies rash Neurologic Neurologic: Denies headache(s), paresthesias or weakness EXAM Physical Exam Const Vital Signs: 01/21/22 03:36 01/21/22 04:16 Temperature 97.9 F Temperature Source Temporal Pulse Rate 84 80 Respiratory Rate 15 15 Blood Pressure 140/87 H 128/74 H Blood Pressure Mean 104 Pulse Ox 98 99 Oxygen Delivery Method Room Air Positive well nourished and well developed General Appearance ED: well developed and NAD HEENT Reports moist mucous membranes normocephalic and atraumatic Eyes PERRL, EOMs intact bilaterally and conjunctivae normal General Eye ED: Yes normal appearance of both eyes Neck no lymphadenopathy and supple General: Negative for tenderness Chest Wall Chest: Negative for tenderness Resp normal respiratory effort and normal air movement Effort and Inspection: symmetric chest movement; Negative for respiratory distress Cardio regular rate, regular rhythm and no murmurs Peripheral Pulses: pulses 2+ throughout GI normal to inspection, nondistended, normoactive bowel sounds and non-tender Palpation: Negative for guarding or rebound tenderness present Back/Spine no CVA tenderness and no thoracic nor lumbar tenderness Extremity normal to inspection General Extremety ED: Negative for edema or tenderness General Extremity: Negative for edema Neuro oriented x3 and no sensory deficits noted Sensorium / Orientation: awake and alert Skin Skin Narrative: Left foot: Puncture wound healing plantar aspect foot between the third and fourth metatarsal. No erythema no swelling no drainage. MDM MDM MDM Narrative Medical decision making narrative: Patient is puncture wound a week out with no signs of infection. His tetanus is updated in the ED. He discussed viral syndrome over the last 3 days since resolving. Reporting chest tightness. He is prescribed take-home inhaler to use as needed. Tobacco cessation discussed. Monitoring symptoms. He will follow-up with his PCP. All questions were answered. Discharge Plan Triage Chief Complaint: Lower Extremity Injury ED Provider: Delfino Moss Dx/Rx/DC Orders Clinical Impression: Puncture wound of foot, left, Tetanus toxoid vaccination administered at current visit, Viral syndrome Instructions: Tdap Vaccine, ED Puncture Wound (Foot), ED URI, Viral, No Abx (Adult) Prescriptions: No Action glucose 4 gram tablet,chewable 4 % PO DAILY PRN PRN (Reason: low glucose) Label Comments: CHEW 1-4 TABLETS NEEDED FOR BLOOD SUGAR <100 esomeprazole magnesium 40 mg capsule,delayed release(DR/EC) 40 mg PO DAILY Label Comments: take 1 capsule by mouth once daily Primary Care Provider: Sidney Feldman Referrals: Sidney Feldman [Primary Care Provider] - 1 Week if not improving Disposition Disposition: Home, Self Care Discharge Date/Time: 01/21/22 04:24
[2022-01-21] MEDS: Diphth,Pertuss(Acell),Tet Vac 0.5 ML Vial IM (04:03)
[2022-01-21 04:16] VITALS: BP 128/74; PULSE 80; RESP 15; O2SAT 99
== END 2022-01-21 04:24 | disposition home or self-care (01) ==
PROVIDERS: Emergency Provider Emergency Medicine; PCP Family Medicine; Visit Provider Emergency Medicine
DX: S91.332A Puncture wound without foreign body, left foot, initial encounter (principal); B34.9 Viral infection, unspecified; F17.210 Nicotine dependence, cigarettes, uncomplicated; Z23 Encounter for immunization; X58.XXXA Exposure to other specified factors, initial encounter
CPT/HCPCS: 90471; 90715; 94640; 94664; 99282

== ENCOUNTER 2022-01-21 13:07 | Emergency (ER) | payer OTHER, SELFPAY ==
[2022-01-21 13:08] VITALS: BP 136/86; PULSE 104; RESP 18; TEMP 37.1; O2SAT 99; BMI 20.9
--- NOTE | 2022-01-21 13:47 | NURSING ---
NO OLD EKGS
--- NOTE | 2022-01-21 13:59 | EDS_ITS ---
HPI History of Present Illness Chief Complaint: Chest Pain Narrative Narrative: 31-year-old male presenting with intermittent chest pains and shortness of breath. He states that last week he noted that he was feeling ill. He states he felt rundown for 3 days and on the fourth day he felt better. He complained then of shortness of breath, generalized weakness, body aches, chest pain. He states that since that time it is a common gone multiple times. He is never checked his temperature because his thermometer is broken. He believes he had a fever the first few days of his symptoms. He does state his father had a heart attack at 34 years old. He himself has no medical history. No DVT or PE history. He has a history of depression. The patient does report that he has been cleaning out his new house which is very old. He has noticed a lot of dirt and old cat feces in the basement. 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 Normal colonoscopy Home Medications esomeprazole magnesium 40 mg capsule,delayed release 40 mg PO DAILY GERD 03/12/20 [History Last Taken Unknown] glucose 4 gram chewable tablet 4 % PO DAILY PRN PRN low glucose 03/12/20 [History Last Taken Unknown] Allergy/AdvReac Type Severity Reaction Status Date / Time No Known Allergies Allergy Verified 01/21/22 13:09 Family History Grandmother Diabetes Social History household members: spouse and family housing: house current occupational status: employed Smoking Status: Current every day smoker tobacco type: cigarettes alcohol intake: current alcohol intake frequency: holidays/special occasions only what type of physical activity do you participate in: none do you feel safe at home: Yes ROS ROS ED Constitutional Constitutional ED: Reports chills, fever(s) and sweats Eyes Eyes: Reports none ENT ENT ED: Denies rhinorrhea or sore throat Cardiovascular Cardiovascular: Reports as per HPI Respiratory/Chest Respiratory/Chest: Reports dyspnea Gastrointestinal Gastrointestinal: Denies abdominal pain Genitourinary Genitourinary ED: Denies dysuria or hematuria Musculoskeletal Musculoskeletal: Reports myalgias; Denies back pain Integumentary Denies abscess or Abrasions Neurologic Neurologic: Reports headache(s); Denies paresthesias Psychiatric Psychiatric: Denies anxiety or depression EXAM Physical Exam Const Vital Signs: 01/21/22 13:08 01/21/22 14:15 Temperature 98.7 F Temperature Source Temporal Pulse Rate 104 H Respiratory Rate 18 Blood Pressure 136/86 H Blood Pressure Mean 102 Pulse Ox 99 Oxygen Delivery Method Room Air Room Air Oxygen Flow Rate (L/min) 97 Positive well nourished General Appearance ED: NAD; Negative for pallor HEENT Reports TM's clear and moist mucous membranes Tympanic Membrane ED: Yes TM's clear Eyes PERRL and EOMs intact bilaterally General Eye ED: Negative for pale conjunctiva or scleral icterus Resp normal respiratory effort and clear to auscultation bilaterally Effort and Inspection: Negative for respiratory distress Cardio regular rate and regular rhythm GI normal to inspection, nondistended, normoactive bowel sounds Neuro oriented x3 and CN's II-XII intact bilaterally Sensorium / Orientation: awake and alert Psych mental status grossly normal Skin no rashes or lesions noted and no wounds General Skin Exam: Negative for jaundice or pallor Heart Score History: Slightly/Non-Suspicious ECG: Normal Age: </= 45 years Risk Factors: No Risk Factors Troponin: </= Normal Limit Score: 0 MDM MDM MDM Narrative Medical decision making narrative: 31-year-old male presenting with intermittent chest pain and shortness of breath. He states this initially started last week and he had 3 days where he was very rundown and then recovered. The symptoms appear to be sporadic but has been going on and off for about a week. Other than his family history of early cardiac disease he does not have any medical problems. He was seen earlier today and was diagnosed with a viral syndrome. He was given albuterol inhaler but is not sure it is helping. On exam he is well-appearing. His vital signs are completely normal with exception of a mild tachycardia of 104. I did obtain an EKG which on my interpretation shows a sinus rhythm with a ventricular to 100 bpm without sign of ischemic change or dysrhythmia. Chest x-ray was obtained and on my interpretation this shows no acute cardiopulmonary process. The radiologist does agree. CBC and BMP within normal limits. High-sensitivity troponin is 3. Given this is been ongoing for more than a week and his work-up is ultimately negative but he safe for discharge home. Impression: 1. chest pain 2. Dyspnea 3. Viral syndrome Lab Data Attestation: I reviewed the patient's lab results. Labs: Laboratory Results - last 24 hr 01/21/22 01/21/22 01/21/22 14:20 14:20 14:20 WBC 7.5 RBC 4.13 L Hgb 13.1 Hct 38.4 L MCV 93.0 MCH 31.7 MCHC 34.1 RDW Std Deviation 43.2 RDW Coeff of Alonso 12.7 Plt Count 263 MPV 9.1 Immature Gran % (Auto) 0.300 Neut % (Auto) 71.7 H Lymph % (Auto) 16.3 L [place] % (Auto) 9.4 Eos % (Auto) 1.9 Baso % (Auto) 0.4 Absolute Neuts (auto) 5.4 Absolute Lymphs (auto) 1.22 Nucleated RBC % 0 D-Dimer Quant (PE/DVT) < 0.27 L Sodium 141 Potassium 3.4 L Chloride 104 Carbon Dioxide 30.0 Anion Gap 7 BUN 8 Creatinine 0.84 Estim Creat Clear Calc 122.62 Est GFR (MDRD) Af Amer 137 Est GFR (MDRD) Non-Af 113 BUN/Creatinine Ratio 9.5 L Glucose 122 H Calcium 8.7 Troponin I High Sens 3 Radiography Diagnostic Testing: Clinical Impression(s) from Imaging Studies Chest X-Ray 01/21/22 14:27 IMPRESSION: Normal x-ray examination of the chest. Electronically Signed: Cb Watt MD at 14:38 EDT , Discharge Plan Triage Chief Complaint: Chest Pain ED Provider: Leandro Silver Dx/Rx/DC Orders Prescriptions: No Action glucose 4 gram tablet,chewable 4 % PO DAILY PRN PRN (Reason: low glucose) Label Comments: CHEW 1-4 TABLETS NEEDED FOR BLOOD SUGAR <100 esomeprazole magnesium 40 mg capsule,delayed release(DR/EC) 40 mg PO DAILY Label Comments: take 1 capsule by mouth once daily Primary Care Provider: Sidney Feldman Referrals: Sidney Feldman [Primary Care Provider] -
--- NOTE | 2022-01-21 13:59 | EKG12_ITS ---
Test Reason : CHEST PAIN Blood Pressure : / mmHG Vent. Rate : 100 BPM Atrial Rate : 100 BPM P-R Int : 132 ms QRS Dur : 088 ms QT Int : 332 ms P-R-T Axes : 072 061 064 degrees QTc Int : 428 ms Normal sinus rhythm Normal ECG Confirmed by DAFNE ESPINAL, PASQUALE ([id number]), sound editor BENNETT GUZMAN ([id number]) on 01/23/2022 2:23:46 PM Referred By: SORAYA Confirmed By:ORACIO LEOS MD
--- NOTE | 2022-01-21 14:02 | NURSING ---
NO OLD EKGS
[2022-01-21] MEDS: 0.9% Normal Saline 1,000 ML 1000 ML IV (14:18)
--- NOTE | 2022-01-21 14:27 | RAD_ITS ---
STUDY: X-RAY CHEST REASON FOR EXAM: Male, 31 years old. Chest pain TECHNIQUE: Single AP portable view of the chest. COMPARISON: Comparison is made with prior study 10/19/2018. FINDINGS: EKG electrodes are seen. The lungs are clear and expanded. Scattered calcified granulomas. There is no demonstrated pleural abnormality. Normal size heart. Normal mediastinum and sugar. Normal visualized pulmonary arteries. Normal visualized aortic arch and descending thoracic aorta. Normal visualized thoracic spine. Normal visualized ribs, clavicles, and shoulders. There is no demonstrated abnormality of the visualized soft tissue structures of the upper abdomen. RAD/Chest 1 View (Portable) IMPRESSION: Normal x-ray examination of the chest. Electronically Signed: Cb Watt MD at 14:38 EDT ,
[2022-01-21 14:31] LABS: Absolute Lymphocyte Count 1.22 X10^3/uL (0.83-4.51); Absolute Neutrophil Count 5.4 X10^3/uL (2.0-7.7); Basophil# 0.03 X10^3/uL; Basophil% 0.4 % (0-1); Eosinophil# 0.14 X10^3/uL; Eosinophils% 1.9 % (0-5); Hematocrit 38.4 % (40-54); Hemoglobin 13.1 g/dL (13.0-16.5); Lymphocyte # 1.22 X10^3/ul (0.83-4.51); Lymphocyte % 16.3 % (19-41); Mean Corp Hgb Conc 34.1 g/dL (32-36); Mean Corpuscular Hgb 31.7 pg (27.0-32.0); Mean Platelet Vol. 9.1 fl (6.2-12.0); Monocyte% 9.4 % (0-10); NRBC Flagged by Analyzer 0 % (0-5); Neutrophil # 5.37 X10^3/uL (2.7-7.7); Neutrophil % 71.7 % (47-70); Platelet Count 263 K/mm3 (150-450); RBC Distribution Width CV 12.7 % (11.6-14.6); RBC Distribution Width SD 43.2 fl (35.1-43.9); Red Blood Count 4.13 M/mm3 (4.6-6.2); White Blood Count 7.5 K/mm3 (4.4-11.0)
[2022-01-21 14:50] LABS: Anion Gap 7 (5-15); BUN 8 mg/dL (7-18); BUN/Creat Ratio 9.5 RATIO (10-20); Calcium,Total 8.7 mg/dL (8.5-10.1); Chloride 104 mmol/L (98-107); Creatinine, Serum 0.84 mg/dL (0.70-1.30); EST Glomerular Filtration Rate 113 mL/min (>60); Est Glom Filt Rate - Afr Amer 137 mL/min (>60); Estimated Creatinine Clearance 122.62 ml/min; Glucose 122 mg/dL (74-106); Potassium 3.4 mmol/L (3.5-5.1); Sodium Level 141 mmol/L (136-145); Troponin-I HS (w/2H Reflex) 3 pg/mL (3.0-78.0)
[2022-01-21 15:02] LABS: D-Dimer Quantitative (DVT/PE) < 0.27 FEU/ug/m (0.27-0.49)
[2022-01-21 16:19] VITALS: BP 124/77; PULSE 62; RESP 15; O2SAT 98
[2022-01-21 16:26] LABS: Reflex Troponin-HS? (from REC) Y
== END 2022-01-21 16:21 | disposition home or self-care (01) ==
PROVIDERS: Emergency Provider Student in an Organized Health Care Education/Training Program; PCP Family Medicine; Visit Provider Student in an Organized Health Care Education/Training Program
DX: R07.9 Chest pain, unspecified (principal); R06.00 Dyspnea, unspecified; B34.9 Viral infection, unspecified; F17.210 Nicotine dependence, cigarettes, uncomplicated
CPT/HCPCS: 71045; 80048; 84484; 85025; 85379; 90471; 90715; 93005; 94640; 94664; 96360; 96361; 99282; 99284; J7030; A4216

== ENCOUNTER 2022-06-05 12:02 | Emergency (ER) | payer OTHER, SELFPAY ==
[2022-06-05 12:03] VITALS: BP 112/75; PULSE 87; RESP 16; TEMP 36.6; O2SAT 97; BMI 20.9
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
[2022-06-05] MEDS: Doxycycline 100 MG CAPSULE PO (12:36)
[2022-06-05] MEDS: HYDROcodone Bitartrate/Apap 5/325 Tablet PO (12:36)
[2022-06-05] MEDS: Diphth,Pertuss(Acell),Tet Vac 0.5 ML Vial IM (12:38)
== END 2022-06-05 13:02 | disposition home or self-care (01) ==
PROVIDERS: Emergency Provider Emergency Medicine; PCP Family Medicine; Visit Provider Emergency Medicine
DX: L02.415 Cutaneous abscess of right lower limb (principal); L03.115 Cellulitis of right lower limb; F17.210 Nicotine dependence, cigarettes, uncomplicated; Z23 Encounter for immunization
CPT/HCPCS: 90715; 96372; 99283

== ENCOUNTER 2023-02-25 18:35 | Emergency (ER) | payer OTHER, SELFPAY ==
[2023-02-25 18:36] VITALS: BP 144/116; PULSE 106; RESP 18; TEMP 36.6; O2SAT 98; BMI 21.6
--- NOTE | 2023-02-25 18:45 | EX.ED.VIS.PS ---
HPI HPI - Psych History of Present Illness Chief Complaint: Mental Health [facility] Medical History (Updated 02/25/23 @ 19:[address] 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 Depression Normal colonoscopy PTSD (post-traumatic stress disorder) Home Medications hydroxyzine HCl 50 mg tablet 50 mg PO QHS 02/25/23 [History Last Taken Unknown] trazodone 50 mg tablet 50 mg PO QHS 02/25/23 [History Last Taken Unknown] venlafaxine 150 mg capsule,extended release 24 hr (Effexor XR) 300 mg PO DAILY 02/25/23 [History Last Taken Unknown] Allergy/AdvReac Type Severity Reaction Status Date / Time No Known Allergies Allergy Verified 02/25/23 18:36 Family History Grandmother Diabetes Social History household members: spouse and family housing: house current occupational status: employed Smoking Status: Current every day smoker tobacco type: cigarettes alcohol intake: current alcohol intake frequency: holidays/special occasions only what type of physical activity do you participate in: none do you feel safe at home: Yes EXAM Physical Exam Const Vital Signs: 02/25/23 18:36 Temperature 97.8 F Temperature Source Temporal Pulse Rate 106 H Respiratory Rate 18 Blood Pressure 144/116 H Blood Pressure Mean 125 Pulse Ox 98 Oxygen Delivery Method Room Air MDM MDM MDM Narrative Medical decision making narrative: HISTORY OF PRESENT ILLNESS: 32-year-old male here with concern for mental health issue. Patient notes his fianc?e thinks he is crazy. States she called the police because he has been perseverating about wires under the house and people watching him. He does endorse using methamphetamine earlier today. Denies any chest pain, headache or other drug use. Denies any suicidal homicidal ideations. REVIEW OF SYSTEMS: Pertinent positives: Meth use Pertinent negatives: Suicidal ideation, homicidal ideation, auditory visual hallucinations PHYSICAL EXAM: Nursing triage notes reviewed, Vital signs reviewed Constitutional: please see mdm HENT: MMM Eyes: Pupils equal round and reactive to light, Extraocular muscles intact Neck: No stridor, no JVD, full neck ROM Lungs: Clear to auscultation, No wheezing or rales. No increased work of breathing, no conversational dyspnea, no accessory muscle use, no nasal flaring. No respiratory distress noted Heart: Regular rate and rhythm, No murmurs, No rubs and No gallops, 2+ distal pulses (radial, femoral, posterior tibial) in all extremities Abdomen: Soft, there is no tenderness, rigidity, rebound or guarding, no obvious peritoneal signs, no palpable pulsatile abdominal masses, no auscultated abdominal bruit : No CVAT Extremities: No edema Neuro: No focal neurological deficits, cranial nerves II through XII intact, 5/5 strength in all extremities. Intact sensation to light touch in all extremities, 2+ reflexes bilateral patella tendons. Normal gait. No ataxia. Skin: No rash or lesions noted Psych: Goal-directed thought process, MEDICAL DECISION MAKING: Chief Complaint: Psych evaluation External records reviewed: Prior ED notes reviewed: Seen for suicidal ideation and polysubstance abuse in 2021 Factors affecting care: PTSD, depression, anxiety Social determinants of health: n history of polysubstance abuse History obtained from others: Police Consults: Behavioral health forensic social worker MDM Narrative: The patient was hemodynamically stable, afebrile, nontoxic-appearing. No red flag psychiatric symptoms such as suicidal ideation, homicidal ideation, auditory visual hallucinations. No indication for psychiatric evaluation at this time. Patient's presentation likely secondary to methamphetamine use. Instructed patient stop using methamphetamine. Did talk to our behavioral forensic social worker who was able to provide the patient outpatient drug rehabilitation resources. The patient and/or family, caregivers express understanding. The patient and/or family, caregivers agrees with the plan. Shared decision making: I will have a discussion with the patient and or visitors regarding risk/benefits of further testing or admission. They will be made aware of of the risk/benefits inherent in this decision they will be given the opportunity to voice understanding. Total critical care time today provided was at least 0 minutes. This excludes separately billable procedures. Critical care time (if documented) is secondary to the patient having high probability of clinically significant/life threatening deterioration in the patient's condition which required my urgent intervention. Impression: 1. Methamphetamine abuse 2. Paranoia Dispo: Discharge Discharge Plan Triage Chief Complaint: Mental Health ED Provider: Jarrell Guaman Dx/Rx/DC Orders Clinical Impression: Methamphetamine abuse Instructions: ED Drug Abuse Prescriptions: No Action venlafaxine [Effexor XR] 150 mg capsule,extended release 24hr 300 mg PO DAILY trazodone 50 mg tablet 50 mg PO QHS hydroxyzine HCl 50 mg tablet 50 mg PO QHS Primary Care Provider: Sidney Feldman Referrals: Sidney Feldman [[facility]] - Activity Restrictions/Additional Instructions: Thank you for trusting us with your care today! Please take Tylenol (2 pills, 650 mg), ibuprofen (2 pills, 400 mg) every 6 hours as needed for pain and fever control. Please stop using illicit drugs. Please return to the emergency department if your symptoms change or worsen. Please follow with your primary care physician for further outpatient evaluation and management. Disposition Disposition: Home, Self Care Discharge Date/Time: 02/25/23 20:33
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
== END 2023-02-25 20:33 | disposition home or self-care (01) ==
PROVIDERS: Emergency Provider Emergency Medicine; PCP Family Medicine; Visit Provider Emergency Medicine
DX: F15.10 Other stimulant abuse, uncomplicated (principal); F17.210 Nicotine dependence, cigarettes, uncomplicated
CPT/HCPCS: 99282

== ENCOUNTER 2024-05-30 15:12 | Emergency (ER) | payer OTHER, SELFPAY ==
[2024-05-30 15:14] VITALS: BP 155/89; PULSE 100; RESP 16; TEMP 36.8; O2SAT 98; BMI 24.0
--- NOTE | 2024-05-30 15:45 | RAD_ITS ---
STUDY: X-RAY - LEFT KNEE REASON FOR EXAM: Male, 34 years old. pain, trauma TECHNIQUE: 4 view(s) of the knee. COMPARISON: None. FINDINGS: Normal visualized distal femur. Normal visualized proximal tibia and fibula. Normal proximal tibiofibular articulation. There is no demonstrated fracture. Normal medial femorotibial compartment. Normal lateral femorotibial compartment. Normal patellofemoral articulation. There is no demonstrated joint effusion. The soft tissue structures are unremarkable. RAD/Knee 4 or More Views IMPRESSION: Normal x-ray examination of the knee. Electronically Signed: Derian Robles MD at 16:04 EST ,
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
[2024-05-30 17:33] VITALS: BP 139/85; PULSE 65; RESP 18; TEMP 36.3; O2SAT 99
== END 2024-05-30 17:52 | disposition home or self-care (01) ==
LOC: ED 17:51
PROVIDERS: Emergency Provider Emergency Medicine; Visit Provider Emergency Medicine
DX: S83.92XA Sprain of unspecified site of left knee, initial encounter (principal); S80.212A Abrasion, left knee, initial encounter; V86.06XA Driver of dirt bike or motor/cross bike injured in traffic accident, initial encounter; K40.90 Unilateral inguinal hernia, without obstruction or gangrene, not specified as recurrent; F32.A Depression, unspecified; F41.9 Anxiety disorder, unspecified; F43.10 Post-traumatic stress disorder, unspecified; Z79.899 Other long term (current) drug therapy; Z88.0 Allergy status to penicillin; F17.210 Nicotine dependence, cigarettes, uncomplicated
CPT/HCPCS: 73564; 99283

== ENCOUNTER → 2024-12-27 | Outpatient (CLI) | payer OTHER, SELFPAY ==
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
== END | disposition home or self-care (01) ==
LOC: MRI 14:08
PROVIDERS: Referring Provider Internal Medicine; Visit Provider Internal Medicine
DX: S22.009S Unspecified fracture of unspecified thoracic vertebra, sequela (principal)
CPT/HCPCS: 72146; 72148

== ENCOUNTER 2025-01-04 16:40 | Emergency (ER) | payer OTHER, SELFPAY ==
[2025-01-04 16:41] VITALS: BP 167/100; PULSE 119; RESP 18; TEMP 36.9; O2SAT 99; BMI 23.7
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
[2025-01-04 17:49] VITALS: BP 131/61; PULSE 71; RESP 18; TEMP 36.6; O2SAT 99
== END 2025-01-04 17:50 | disposition home or self-care (01) ==
PROVIDERS: Emergency Provider Emergency Medicine; Visit Provider Emergency Medicine
DX: S32.039A Unspecified fracture of third lumbar vertebra, initial encounter for closed fracture (principal); S22.030A Wedge compression fracture of third thoracic vertebra, initial encounter for closed fracture; S22.050A Wedge compression fracture of T5-T6 vertebra, initial encounter for closed fracture; F17.210 Nicotine dependence, cigarettes, uncomplicated; V86.06XA Driver of dirt bike or motor/cross bike injured in traffic accident, initial encounter
CPT/HCPCS: 99282